=== PATIENT | female | born 1960 | race Caucasian/White ===

== ENCOUNTER 2017-06-24 14:57 | Emergency (ER) | payer MEDICAID ==
[~2017-06-24] VITALS: Ht 160 cm; Wt 59.4 kg
[2017-06-24 16:03] VITALS: Ht 160 cm; Wt 59.4 kg
[2017-06-24 21:51] VITALS: BP 160/88
== END 2017-06-24 21:51 | disposition home or self-care (01) ==
LOC: ED 14:57
DX: R21 Rash and other nonspecific skin eruption (principal); R03.0 Elevated blood-pressure reading, without diagnosis of hypertension; Z88.1 Allergy status to other antibiotic agents
CPT/HCPCS: J2930; Q0163